=== PATIENT | male | born 1930 | race Caucasian/White ===

== ENCOUNTER 2016-12-14 10:20 | Outpatient (CLI) | payer MEDICARE, OTHER | END 2016-12-14 10:21 | disposition home or self-care (01) | DX: E11.9 Type 2 diabetes mellitus without complications (principal); I10 Essential (primary) hypertension; D69.6 Thrombocytopenia, unspecified; I48.91 Unspecified atrial fibrillation ==

== ENCOUNTER 2017-07-06 08:00 | Outpatient (CLI) | payer MEDICARE ==
[2017-07-06 12:39] LABS: HEMOGLOBIN A1C 0.73 g/dL
[2017-07-06 12:47] LABS: ALBUMIN/GLOBULIN RATIO 1.2 (1.0-2.2); BILIRUBIN,TOTAL 1.2 mg/dL (0.2-1.0); BUN - BLOOD UREA NITROGEN 17 mg/dL (6-20); CALCIUM 8.8 mg/dL (8.5-10.3); CARBON DIOXIDE - CO2 30 mmol/L (21-32); CHLORIDE 104 mmol/L (101-111); CHOL/HDL RATIO 3.4 (<5.0); CHOLESTEROL 124 mg/dL; CREATININE 1.1 mg/dL (0.6-1.2); GFR - MDRD 63 (>89); GLUCOSE 127 mg/dL (70-100); HDL CHOLESTEROL 37 mg/dL; LDL/HDL RATIO 1.9 (<3.6); POTASSIUM 3.5 mmol/L (3.5-5.0); SODIUM 140 mmol/L (135-145); TOTAL PROTEIN 6.4 g/dL (6.7-8.2); TRIGLYCERIDES 87 mg/dL; VLDL CHOLESTEROL 17 mg/dL
== END 2017-07-06 08:01 | disposition home or self-care (01) ==
LOC: LAB.WCP 08:00
PROVIDERS: ATTEND Family Medicine
DX: E78.5 Hyperlipidemia, unspecified (principal); E11.9 Type 2 diabetes mellitus without complications
CPT/HCPCS: 36415; 80053; 80061; 83036

== ENCOUNTER 2019-02-24 08:00 | Outpatient (CLI) | payer MEDICARE | END 2019-02-24 23:59 | disposition home or self-care (01) | LOC: LAB.WCP 08:00 | PROVIDERS: ATTEND Family Medicine | DX: I48.91 Unspecified atrial fibrillation (principal); Z79.01 Long term (current) use of anticoagulants | CPT/HCPCS: 81025 ==

== ENCOUNTER 2019-06-03 08:00 | Outpatient (CLI) | payer MEDICARE | END 2019-06-03 08:01 | disposition home or self-care (01) | LOC: LAB.WCP 08:00 | PROVIDERS: ATTEND Family Medicine | DX: I48.91 Unspecified atrial fibrillation (principal); Z79.01 Long term (current) use of anticoagulants ==

== ENCOUNTER 2019-07-01 08:00 | Outpatient (CLI) | payer MEDICARE, BC | END 2019-07-01 23:59 | disposition home or self-care (01) | LOC: LAB.WCP 08:00 | PROVIDERS: ATTEND Physician Assistant | DX: I48.91 Unspecified atrial fibrillation (principal); Z79.01 Long term (current) use of anticoagulants ==

== ENCOUNTER 2019-08-05 08:00 | Outpatient (CLI) | payer MEDICARE, BC | END 2019-08-05 23:59 | disposition home or self-care (01) | LOC: LAB.WCP 08:00 | PROVIDERS: ATTEND Family Medicine | DX: I48.91 Unspecified atrial fibrillation (principal); Z79.01 Long term (current) use of anticoagulants ==

== ENCOUNTER 2019-09-02 08:00 | Outpatient (CLI) | payer MEDICARE, BC | END 2019-09-02 23:59 | disposition home or self-care (01) | LOC: LAB.WCP 08:00 | PROVIDERS: ATTEND Family Medicine | DX: I48.91 Unspecified atrial fibrillation (principal); Z79.01 Long term (current) use of anticoagulants ==

== ENCOUNTER 2019-09-30 08:00 | Outpatient (CLI) | payer MEDICARE, BC | END 2019-09-30 23:59 | disposition home or self-care (01) | LOC: LAB.WCP 08:00 | PROVIDERS: ATTEND Family Medicine | DX: I48.91 Unspecified atrial fibrillation (principal); Z79.01 Long term (current) use of anticoagulants ==

== ENCOUNTER 2019-10-28 08:00 | Outpatient (CLI) | payer MEDICARE, BC | END 2019-10-28 23:59 | disposition home or self-care (01) | LOC: LAB.WCP 08:00 | PROVIDERS: ATTEND Nurse Practitioner Family | DX: I48.91 Unspecified atrial fibrillation (principal); Z79.01 Long term (current) use of anticoagulants ==

== ENCOUNTER 2019-12-01 08:00 | Outpatient (CLI) | payer MEDICARE, BC | END 2019-12-01 23:59 | disposition home or self-care (01) | LOC: LAB.WCP 08:00 | PROVIDERS: ATTEND Family Medicine | DX: Z79.01 Long term (current) use of anticoagulants (principal); I48.91 Unspecified atrial fibrillation ==

== ENCOUNTER 2019-12-29 08:00 | Outpatient (CLI) | payer MEDICARE, BC | END 2019-12-29 23:59 | disposition home or self-care (01) | LOC: LAB.WCP 08:00 | PROVIDERS: ATTEND Family Medicine | DX: I48.91 Unspecified atrial fibrillation (principal); Z79.01 Long term (current) use of anticoagulants ==

== ENCOUNTER 2020-01-07 09:48 | Outpatient (CLI) | payer MEDICARE, BC ==
--- NOTE | 2020-01-07 10:26 | XRAY Report ---
Reason: COUGH Procedure Date: 01/07/2020 Accession Number: [id number] / [id number] Procedure: WCP - Chest 2 View X-Ray CPT Code: 66962 Final Report FULL RESULT: EXAM: CHEST RADIOGRAPHY EXAM DATE: 01/07/2020 10:04 AM. CLINICAL HISTORY: COUGH. COMPARISON: None. TECHNIQUE: 2 views. FINDINGS: The aorta is tortuous. The heart is enlarged. There is pulmonary vascular congestion. Perihilar and bibasilar opacities are likely related to the pulmonary vascular congestion. There is no focal consolidation, pleural effusion, or pneumothorax. Degenerative changes are seen in the spine. IMPRESSION: Cardiomegaly and pulmonary vascular congestion. [facility]
== END 2020-01-07 23:59 | disposition home or self-care (01) ==
LOC: DI.WCP 09:48
PROVIDERS: ATTEND Family Medicine
DX: R09.89 Other specified symptoms and signs involving the circulatory and respiratory systems (principal); I51.7 Cardiomegaly
CPT/HCPCS: 71046